=== PATIENT | male | born 1990 | race Caucasian/White ===

== ENCOUNTER 2024-05-12 07:05 | Emergency (ER) | payer SELFPAY ==
[2024-05-12 07:05] VITALS: BMI 26.6
[2024-05-12 07:12] VITALS: BP 138/73; PULSE 144; RESP 18; TEMP 36.9; O2SAT 99; BMI 26.9
--- NOTE | 2024-05-12 07:14 | PD.EDANX ---
ED Anxiety RME/HPI General Chief Complaint: Anxiety Stated Complaint: ANXIETY AND FOOT DISORDER Time Seen by Provider: 05/12/24 07:08 Arrival date/time: 05/12/24 07:05 34 year old male present to emergency room with c/o of anxiety and left foot pain. pt report anxiety ongoing and denies any SI, Hallucination or homicidal thoughts. Pt would like to leave since his mother is coming to get him. pt request tylenol for foot pain LOCATION: foot SEVERITY: Symptoms are described as being severe with limitations on activities of daily living QUALITY: Symptoms are described as being dull or achy CONTEXT: unknown DURATION/TIMING: The symptoms started approximately 2 days ago and have been constant this then. ASSOCIATED SYMPTOMS: The patient is unable to identify any other associated symptoms. MODIFYING FACTORS: The patient is unable to identify any alleviating or aggravating symptoms. PERTINENT ROS: no fevers, no headache, no neck or chest pain, no unexplained nausea or vomiting, no focal neurological deficits REVIEW OF SYSTEMS: See History of Present Illness - with the exception of those mentioned in the history of present illness, all other systems reviewed and reported as negative GENERAL: In general the patient is awake, interactive, in an emergency department gurney. HEAD/EYES/EARS/NOSE/THROAT: normo-cephalic, atraumatic, mucus membranes are moist, anicteric, palpebral conjunctiva is pink, trachea is midline. CARDIOVASCULAR: regular rate and regular rhythm, no murmurs, heart sounds are not distant, strong pulses in all four extremities that are equal and symmetric bilateral upper and lower extremities, normal capillary refill. CHEST/PULMONARY: normal chest rise and fall, good air movement, clear to auscultation bilaterally, normal inspiratory to expiratory ratios without evidence of respiratory distress. NEUROLOGICAL: cranio-facial features are symmetric, moves all four extremities equally without obvious limitations or weakness. EXTREMITY: no tenderness to palpation over the long bones or large joints of the bilateral upper and lower extremities, no joint swelling, no joint erythema, no signs of trauma, no unilateral leg swelling and no peripheral edema. SKIN: warm, dry, well-perfused, no jaundice, no rash, no telangiectasias or petechia. PSYCH: calm, cooperative, no evidence of psychosis or agitation Related Data Allergies Allergy/AdvReac Type Severity Reaction Status Date / Time NKA Allergy Unknown Uncoded 05/12/24 07:08 Course Course Course Narrative: pt decline any intervention pt request for tylenol and will be getting pick up attendant by his mother now. pt eloped before getting medication advised if any worsen sx to return to Ed for evaluation Quality Measures none Orders Category Date Time Status Acetaminophen Tab [Tylenol ES Tab] Med 05/12/24 07:13 Discontinued 1,000 mg PO X1 ONE Vital Signs Vital signs: Vital Signs Temperature 98.5 F 05/12/24 07:12 Pulse Rate 144 H 05/12/24 07:12 Respiratory Rate 18 05/12/24 07:12 Blood Pressure 138/73 H 05/12/24 07:12 Pulse Oximetry (%) 99 05/12/24 07:12 Oxygen Delivery Method Room Air 05/12/24 07:12 Anxiety Patient data External records reviewed:: None Clinical information provided by:: patient Social determinants that could affect healthcare access:: none Patient has the following chronic illnesses:: anxiety How is presenting disease/condition affected by chronic disease/condition?: exacerbated by Evaluation data The following diagnostics were reviewed and interpreted by me:: other (specify) (n/a ) Lab and/or radiology exams considered but not ordered:: n/a Interpretation Summary: n/a Medications / Prescriptions Medications or Prescriptions considered but not ordered:: n/a Medication administrations:: Medication Administration History Discontinued Medications Acetaminophen (Acetaminophen 500 Mg Tablet) 1,000 mg PO X1 ONE Stop: 05/12/24 07:14 Consultations Consultation(s) initiated? (list below): No Diagnosis Most likely diagnosis given after review of the tests above:: anxiety, foot pain Admission Indicated Admission indicated?: not indicated Admission Request Was there a request for admission?: No Disposition Plan Disposition Plan: other (specify) (elopement ) Discharge Plan Plan Patient Disposition: Elopement Prescriptions/Referrals Referrals: No Primary/Family,Physician [Primary Care Provider] - In 1 week Problem List Clinical Impression: Anxiety, Acute foot pain Patient/Caregiver Discharge Instructions Print Language: Lithuanian
--- NOTE | 2024-05-12 07:18 | PC.NURSE ---
PT CAME UP TO THIS RN AND STATED IM SIGNING OUT, WAS TALKING ON CELL PHONE AND WALKED OUT OF THE ED.
== END 2024-05-12 07:19 | disposition left against medical advice (07) ==
LOC: SERX 07:18
PROVIDERS: Emergency Provider Emergency Medicine
DX: F41.9 Anxiety disorder, unspecified (principal); M79.672 Pain in left foot
CPT/HCPCS: 99281

== ENCOUNTER 2024-06-27 06:40 | Emergency (ER) | payer MEDICAID, SELFPAY ==
[2024-06-27 06:42] VITALS: BMI 23.6
[2024-06-27 06:48] VITALS: BP 128/71; PULSE 108; RESP 18; TEMP 36.6; O2SAT 99
--- NOTE | 2024-06-27 06:59 | EDNOTE_ITS ---
ED Anxiety RME/HPI General Chief Complaint: Anxiety Stated Complaint: ANXIETY, SHORTNESS OF BREATH Time Seen by Provider: 06/27/24 06:48 Source: patient Arrival date/time: 06/27/24 06:40 34-year-old male with no known medical history presents to the emergency room with a chief complaint of a spider bite to his left lower extremity. The patient appears very anxious and states he has a history of anxiety and does not take his medication. Patient denies any homicidal ideation any suicidal ideation and states he is just here for spider bite. Mode of arrival: ambulatory Limitations: no limitations Related Data Previous Rx's ?Medication ?Instructions ?Recorded cephalexin 500 mg capsule 500 mg PO BID 7 days #14 cap s 06/27/24 Allergies Allergy/AdvReac Type Severity Reaction Status Date / Time No Known Allergies Allergy Verified 06/27/24 06:45 Review of Systems Review of Systems Systems Reviewed: All systems reviewed, normal except as documented Constitutional Constitutional: Reports system reviewed and no additional complaints, except as documented, Denies fatigue, Denies fever(s), Denies headache(s) and Denies weakness Eyes Eyes: Reports system reviewed and no additional complaints, except as documented, Denies blurry vision and Denies change in vision ENT Ears, Nose, Mouth, and Throat: Reports system reviewed and no additional complaints, except as documented, Denies otalgia, Denies headache(s), Denies nasal congestion, Denies throat swelling and Denies vertigo Cardiovascular Cardiovascular: Reports system reviewed and no additional complaints, except as documented, Denies chest pain, Denies dyspnea and Denies dyspnea on exertion Respiratory Respiratory: Reports system reviewed and no additional complaints, except as documented, Denies chest congestion, Denies cough, Denies dyspnea, Denies dyspnea on exertion and Denies wheezing Gastrointestinal Gastrointestinal: Reports system reviewed and no additional complaints, except as documented, Denies abdominal pain, Denies cramping, Denies nausea and Denies vomiting Genitourinary Genitourinary: Reports system reviewed and no additional complaints, except as documented, Denies dysuria and Denies hematuria Musculoskeletal Musculoskeletal: Reports system reviewed and no additional complaints, except as documented and Denies back pain Integumentary/Breasts Skin/Breast: Reports system reviewed and no additional complaints, except as documented, Reports pruritus, Reports rash and Reports wounds Neurologic Neurologic: Reports system reviewed and no additional complaints, except as documented, Denies confusion, Denies headache(s), Denies lack of coordination, Denies vertigo and Denies weakness Psychiatric Psychiatric: Reports system reviewed and no additional complaints, except as documented, Reports anxiety, Denies confusion, Denies depression, Denies paranoia, Denies suicidal ideation, Denies tactile hallucinations and Denies visual hallucinations Endocrine Endocrine: Reports system reviewed and no additional complaints, except as documented and Denies fatigue Hematologic/Lymphatic Hematologic/Lymphatic: Reports system reviewed and no additional complaints, except as documented and Denies lymphadenopathy Allergic/Immunologic Allergic/Immunologic: Reports system reviewed and no additional complaints, except as documented, Denies throat swelling, Denies urticaria and Denies wheezing ED Exam General Limitations: Present no limitations General appearance: Present alert and in no apparent distress Head Head exam: Present atraumatic Eye Eye exam: Present normal appearance, PERRL and EOMI ENT ENT exam: Present normal exam, normal oropharynx and mucous membranes moist Neck Neck exam: Present normal inspection, full ROM and trachea midline Chest Chest inspection: Present normal inspection and symmetric chest wall rise Respiratory Respiratory exam: Present normal lung sounds bilaterally Cardiovascular Cardiovascular exam: Present regular rate, normal rhythm and normal heart sounds Abdominal Exam Abdominal exam: Present soft and normal bowel sounds Extremities Exam Extremities exam: Present normal inspection and full ROM Expanded Lower Extremity Exam Hip/Pelvis exam: Present normal inspection Upper leg exam: Present normal inspection Knee exam: Present normal inspection Lower leg exam: Present normal inspection Ankle exam: Present normal inspection Foot/toe exam: Present normal inspection Gait: observed and normal Back Exam Back exam: Present normal inspection and full ROM Neurological Exam Neurological exam: Present alert, oriented X3 and CN II-XII intact Psychiatric Psychiatric exam: Present normal affect and normal mood Skin Skin exam: Present warm, dry, intact and normal color Expanded Skin Exam Type of lesion: Present bite/sting Distribution: Present LLE Description: Present tenderness, erythematous and macular; Absent swelling or discharge Body image: 2 1. 0.5 cm erythemic insect bite to the left lower extremity Course Quality Measures none Vital Signs Vital signs: Vital Signs Temperature 97.8 F 06/27/24 06:48 Pulse Rate 108 H 06/27/24 06:48 Respiratory Rate 18 06/27/24 06:48 Blood Pressure 128/71 06/27/24 06:48 Pulse Oximetry (%) 99 06/27/24 06:48 Oxygen Delivery Method Room Air 04/16/25 06:48 O2 saturation 99% within normal limits Anxiety MDM Narrative MDM Narrative: 34-year-old male with no known medical history presents to the emergency room with a chief complaint of a spider bite to his left lower extremity. The patient appears very anxious and states he has a history of anxiety and does not take his medication. Patient denies any homicidal ideation any suicidal ideation and states he is just here for spider bite. Patient is hemodynamically stable and in no apparent distress. The patient is a GCS of 15 he is alert and oriented x 3. Patient is having anxiety. But the patient denies any visual or auditory hallucinations he denies any suicidal ideation or any homicidal ideation. Patient is able to tell me that he is here due to a spider bite to his left lower extremity near his feng and knee. It is a small 0.5 cm erythemic area. There is no warmth and there is no drainage or pus. Antibiotics are sent to the patient's pharmacy. At this time the patient refused any needles and states he does not want an antibiotic shot Patient was discharged and educated to follow-up with primary care provider in the next 24 to 48 hours and return to the emergency room for any evidence of worsening signs or symptoms Patient data External records reviewed:: [facility] previous records Clinical information provided by:: patient Social determinants that could affect healthcare access:: none Patient has the following chronic illnesses:: No chronic illness How is presenting disease/condition affected by chronic disease/condition?: no chronic disease Evaluation data The following diagnostics were reviewed and interpreted by me:: lab results and radiology exam(s) Lab and/or radiology exams considered but not ordered:: Labs and radiology exams considered and ordered Interpretation Summary: N/A Medications / Prescriptions Medications or Prescriptions considered but not ordered:: Rx given Medication administrations:: Rx given Consultations Consultation(s) initiated? (list below): No Diagnosis Differential diagnosis anxiety: acute anxiety and other (Cellulitis/spider bite/abscess) Most likely diagnosis given after review of the tests above:: Spider bite Admission Indicated Admission indicated?: not indicated Admission Request Was there a request for admission?: No Disposition Plan Disposition Plan: Discharge Discharge Attestation Discharge Attestation: The patient and all family members were given an opportunity to ask questions and understood the discharge instructions. Discharge instructions specifically effects, indications for sooner follow up or return to the emergency department, and the expected course of current diagnosis. Patient condition: Stable Discharge Plan Plan Patient Disposition: HOME (Self Care) Disposition Comment: Stable Prescriptions/Referrals Prescriptions/Med Rec: New cephalexin 500 mg capsule 500 mg PO BID 7 Days Qty: 14 0RF Problem List Clinical Impression: Anxiety, Spider bite Patient/Caregiver Discharge Instructions Education Materials: Insect Bites and Stings Additional Instructions: Please follow-up with your primary care provider in the next 24 to 48 hours. Antibiotics are sent to your pharmacy please pick them up and take them as indicated. For any evidence of worsening signs or symptoms return to the emergency room immediately Print Language: Tajik Stand Alone Forms: Daija Award Info., Patient Portal Info Letter PA/USABILITY ARCHITECT Supervising Physician PA/LENIN Supervising Physician: Dr. Brock
== END 2024-06-27 06:59 | disposition home or self-care (01) ==
LOC: SERX 06:55
PROVIDERS: Emergency Provider Internal Medicine Cardiovascular Disease
DX: T63.301A Toxic effect of unspecified spider venom, accidental (unintentional), initial encounter (principal); F41.9 Anxiety disorder, unspecified
CPT/HCPCS: 99281

== ENCOUNTER 2024-06-28 00:14 | Emergency (ER) | payer MEDICAID, SELFPAY ==
[2024-06-28 00:17] VITALS: BMI 23.9
--- NOTE | 2024-06-28 01:07 | PD.EDADDENDU ---
Emergency Room Addendum Addendum Narrative: When I looked for the patient to start evaluation, I was told the patient eloped. Oleg Reynolds MD
--- NOTE | 2024-06-28 01:08 | PC.NURSE ---
CALLED FOR PT FROM [facility]/OUTSIDE, NO ANSWERX1 @ [phone]
--- NOTE | 2024-06-28 01:24 | PC.NURSE ---
PT CALLED BACK FROM [facility] NO ANSWER
--- NOTE | 2024-06-28 01:39 | PC.NURSE ---
PT CALLED BACK FROM [facility] NO ANSWER
== END 2024-06-28 01:39 | disposition left against medical advice (07) ==
LOC: SERX 03:27
PROVIDERS: Emergency Provider Emergency Medicine
DX: Z53.21 Procedure and treatment not carried out due to patient leaving prior to being seen by health care provider (principal)